=== PATIENT | female | born 1995 | race Caucasian/White ===

== ENCOUNTER 2019-10-15 19:48 | Inpatient (IN) | payer OTHER, SELFPAY ==
--- NOTE | ~2019-10-15 | CT_ITS ---
EXAMINATION: CT BRAIN W/O DATE: 10/15/2019 21:02 INDICATION: Headache TECHNIQUE: Computed tomography (CT) of the head was performed without intravenous contrast. The dose- length product was 605.33 mGy-cm. The mA was adjusted according to patient size. Iterative reconstruc tion technique was employed. COMPARISON: No prior studies for comparison. FINDINGS: Normal brain parenchymal volume for age. Normal burton-white differentiation. No acute intrac ranial hemorrhage, infarction, mass or mass effect. No ventriculomegaly or midline shift. Midline sagittal images demonstrate a normal corpus callosum, c raniovertebral junction and sella turcica. Basilar cisterns are patent. Paranasal sinuses and mastoids are pneumatized. No depressed skull fractures. IMPRESSION: 1. No acute intracranial abnormality. Reviewed, dictated and finalized at location A. STICS/SHIPPER
--- NOTE | ~2019-10-15 | MR_ITS ---
EXAMINATION: MR brain/brain stem wo/w con DATE: 10/16/2019 12:41 INDICATION: Headache and blurred vision. Increased intracranial pressure. TECHNIQUE: Magnetic resonance imaging (MRI) of the brain and brainstem was performed without and with 20 mL MultiHance intravenous contrast. Sequences included sagittal and axial T1-weighted FSE, axial diffusion-weighted FS EPI, axial T2*-weighted GRE, axial T2-weighted FLAIR Propeller, and axial T2-we ighted Propeller. Postcontrast sequences included axial and coronal T1-weighted FSE. Apparent diffusi on coefficient (ADC) maps were created. COMPARISON: Head CT 10/15/2019 FINDINGS: There is no intracranial hemorrhage, acute infarction, or abnormal intracranial mass lesion . The ventricles are normal in size. The paranasal sinuses are clear. The orbits are normal. The mast oid air cells are normal. IMPRESSION: 1. Normal brain. Reviewed, dictated and finalized at location A. SCIENCE TEACHER IMPRESSION: 1. Normal brain.
--- NOTE | ~2019-10-15 | XR_ITS ---
EXAMINATION: XR lumbar puncture diagnostic DATE: 10/17/2019 13:44 INDICATION: Headache. TECHNIQUE: The procedure including the risks, benefits, and alternatives was discussed with the patie nt. Risks discussed included spinal headache, cerebrospinal fluid leak, bleeding, and infection. The patient understood the risks and agreed to proceed. A timeout was performed to verify the patient' s name, date of , and procedure to be performed. The skin overlying the L2-L3 level was prepped and draped in usual sterile fashion. Subcutaneous 1% lidocaine was used for local anesthesia. A 20 gauge spinal needle was advanced under fluoroscopic guidance. The needle was removed and the entry s ite was cleaned and dressed. There were no immediate complications. Fluoroscopy exposure time was 0. 1 minutes. The total number of images was 1. The needle was then withdrawn into the epidural space. 1 0 mL blood was then withdrawn from the patient's arm and injected into the epidural space. FINDINGS: Real-time fluoroscopy demonstrates the needle at the L2-L3 level. The opening pressure was 12 cm water (Normal range is variably defined as 6-20 cm water and up to 25 cm water in obese patient s. Pressure >25 cm water is one of the modified Dandy criteria for idiopathic intracranial hypertensi on). 13 mL of clear, colorless fluid was collected in 4 tubes. IMPRESSION: 1. Successful fluoro-guided lumbar puncture with normal pressure. 2. Epidural blood patch performed. Reviewed, dictated and finalized at location A. K STITCHER
--- NOTE | ~2019-10-15 | MR_ITS ---
EXAMINATION: MR venography brain DATE: 10/16/2019 15:02 INDICATION: Increased intracranial pressure. Headache. TECHNIQUE: Magnetic resonance venography (MRV) of the brain was performed without intravenous contras t with T1-weighted SPGR by the 2D [id number] technique. Maximum intensity projection 3D-reconstru ctions were obtained. COMPARISON: Brain MRI 10/16/2019, head CT 10/15/2019 FINDINGS: The superior sagittal sinus, straight sinus, transverse sinuses, and oblique sinuses are normal. The internal cerebral veins and vein of Mario are normal. IMPRESSION: 1. Normal MRV. Reviewed, dictated and finalized at location A. HT LINE SERVICE ATTENDANT IMPRESSION: 1. Normal MRV.
[2019-10-15 19:52] VITALS: BP 157/94; PULSE 83; RESP 22; TEMP 36.9; O2SAT 100
[2019-10-15 20:35] LABS: Basophils Percent Auto 0.2 % (0.2-1.2); Eosinophils Absolute Auto 0.2 K/mm3 (0-0.3); Eosinophils Percent Auto 1.7 % (0-4.4); Hematocrit 41.1 % (37.0-47.0); Hemoglobin 13.8 g/dL (12.0-15.0); Immature Granulocyte Absolute 0.04 K/mm3 (0.00-0.031); Immature Granulocyte Percent A 0.3 % (0-0.5); Lymphocytes Percent Auto 25.3 % (18.3-44.2); Mean Corpuscular HGB Conc 33.6 g/dl (32-36); Mean Corpuscular Hemoglobin 30.5 pg (26-34); Mean Corpuscular Volume 90.7 fl (80-100); Mean Platelet Volume 10.1 fl (7.4-10.4); Monocytes Percent Auto 7.7 % (2.6-8.5); Neutrophils Absolute Auto 8.7 K/mm3 (1.3-6.7); Neutrophils Percent Auto 64.8 % (45.5-73.1); Platelet Count Result 236 k/mm3 (150-375); Red Blood Count 4.53 M/mm3 (4.2-5.4); Red Cell Distribution Width 12.3 % (11.5-14.5); White Blood Count 13.4 K/mm3 (4.5-10.0)
[2019-10-15 20:46] LABS: Blood Urea Nitrogen 11 mg/dL (7-17); Calcium 9.4 mg/dL (8.4-10.2); Carbon Dioxide 26 mmol/L (22-30); Chloride 103 mmol/L (98-107); Estimated CRCL calculation 128 ml/min; Estimated Glomerular Filt Rate > 60; Glucose 103 mg/dL (65-105); Sodium 140 mmol/L (137-145)
[2019-10-15 22:10] LABS: Add Urine Microscopic? YES; Amorphous Sediment Urine Few; Appearance Urine Clear (Clear); Bacteria Urine Trace /hpf; Bilirubin Urine Negative (Negative); Blood Urine Negative (Negative); Color Urine Yellow (Yellow); Glucose Urine UA Negative (Negative); Ketones Urine Negative (Negative); Leukocyte Esterase Ur Trace LEU/UL (Negative); Mucus Urine Rare /lpf; Nitrate Urine Negative (Negative); Protein Urine Negative (Negative); RBC Urine 0-2 /hpf (0-2); Specific Grav Ur 1.028 (1.001-1.035); Squamous Epithelial Cell Urine Moderate /hpf (Few); WBC Urine 0-3 /hpf
--- NOTE | 2019-10-15 22:47 | ED.GENADULT ---
HPI - General Adult General Chief complaint: Eye Problems <Suyapa Seo PA-C - Last Filed: 10/16/19 02:13> Stated complaint: referred from eye dr for ct <Suyapa Seo PA-C - Last Filed: 10/16/19 02:13> Time Seen by Provider: 10/15/19 22:42 <Suyapa Seo PA-C - Last Filed: 10/16/19 02:13> Source: patient and family <Suyapa Seo PA-C - Last Filed: 10/16/19 02:13> Mode of arrival: ambulatory <Suyapa Seo PA-C - Last Filed: 10/16/19 02:13> Limitations: no limitations <Suyapa Seo PA-C - Last Filed: 10/16/19 02:13> History of Present Illness HPI narrative: Pt was referred here for CT after being evaluated by clock and watch hands painter and found to have papiledema. She was seeing them for blurred vision and headache lasting 2 weeks. [facility] for possible pseudotumor ceribri/IIH. <Suyapa Seo PA-C - Last Filed: 10/16/19 02:13> Onset (ago): week(s) <Suyapa Seo PA-C - Last Filed: 10/16/19 02:13> Location: head and eyes <Suyapa Seo PA-C - Last Filed: 10/16/19 02:13> Quality: aching <Suyapa Seo PA-C - Last Filed: 10/16/19 02:13> Pain Consistency: constant <Suyapa Seo PA-C - Last Filed: 10/16/19 02:13> Relieving factors: none <ANGELICA Art Last Filed: 10/16/19 02:13> Exacerbating factors: none <ANGELICA Art Last Filed: 10/16/19 02:13> Associated symptoms: other (blurred vision) <Suyapa Seo PA-C - Last Filed: 10/16/19 02:13> Treatments prior to arrival: none <Suyapa Seo PA-C - Last Filed: 10/16/19 02:13> Related Data Home medications: Home Medications Medication Instructions Recorded Confirmed No Home Medications 10/16/19 10/16/19 <Suyapa Seo PA-C - Last Filed: 10/16/19 02:13> Allergies/adverse reactions: Allergies Allergy/AdvReac Type Severity Reaction Status Date / Time Sulfa (Sulfonamide Allergy Unknown Verified 10/15/19 23:17 Antibiotics) <Suyapa Seo PA-C - Last Filed: 10/16/19 02:13> Review of Systems Review of Systems: All systems reviewed & are unremarkable except as noted in HPI and below <Suyapa Seo PA-C - Last Filed: 10/16/19 02:13> [facility] Family History Family History: Family History (Updated 10/16/19 @ 04:06 by Jasbir Sanon RN) Mother Cancer Cerebrovascular accident Diabetes mellitus Father No problems noted. 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 Gender identity (if verbalized by the patient): Female Spiritual care concerns: No Agree to blood products: Yes <Suyapa Seo PA-C - Last Filed: 10/16/19 02:13> Exam Const: General: no acute distress and alert <ANGELICA Art Last Filed: 10/16/19 02:13> Orientation/consciousness: patient oriented x3 <ANGELICA Art Last Filed: 10/16/19 02:13> HENMT: Ears: TM's normal bilaterally <Suyapa Seo PA-C - Last Filed: 10/16/19 02:13> Eyes: Conjunctivae: conjunctivae normal <ANGELICA Art Last Filed: 10/16/19 02:13> Pupils: Equal, round and reactive pupils present (remain dilated from prior exam) <ANGELICA Art Last Filed: 10/16/19 02:13> EOM: EOMs intact bilaterally <ANGELICA Art Last Filed: 10/16/19 02:13> Direct Ophthalmoscopy: no photophobia <ANGELICA Art Last Filed: 10/16/19 02:13> Neck: Neck: no lymphadenopathy <ANGELICA Art Last Filed: 10/16/19 02:13> Resp: Effort & Inspection: normal respiratory effort <Suyapa Holliday
[2019-10-15 23:03] VITALS: BP 148/97; PULSE 66; RESP 20; TEMP 36.6; O2SAT 98
--- NOTE | 2019-10-15 23:23 | PC.NURSE ---
Patient in room with her SO discussing treatment options at this time.
--- NOTE | 2019-10-16 00:11 | PC.NURSE ---
EDP in room at this time performing LP on patient. Consent signed. This RN at bedside as well.
[2019-10-16 01:37] LABS: Glucose CSF 60 mg/dL (40-70); Total Protein CSF 27 mg/dL (12-60)
[2019-10-16] MEDS: ACETAZOLAMIDE 250 MG TABLET PO ×3 (02:49→15:07)
[2019-10-16 02:55] VITALS: BP 127/84; PULSE 75; RESP 19; O2SAT 99
[2019-10-16 02:56] LABS: Appearance CSF Clear (Clear); CSF source CSF; Color CSF Colorless (Colorless)
[2019-10-16 02:57] LABS: Nucleated Cell CSF 8 /uL (0-5); Red Blood Cell CSF 0 (0-2)
[2019-10-16 02:58] LABS: Monocytes CSF 14 % (15-45)
[2019-10-16 03:00] LABS: Lymphocytes CSF 86 % (40-80)
[2019-10-16 03:55] VITALS: BMI 39.0
--- NOTE | 2019-10-16 04:03 | ADMGEN ---
This patient, Marline Mendez, was admitted to [facility] Surg Room 327-01. Patient/family oriented to hospital policies and general routines including ID bracelet, bed and alarms, visiting hours, pain management, procedures, bathroom and other care routines, personal items, smoking policy, room service/diet, and visiting hours. Valuables list has been completed. Information on how to activate the Rapid Response Team has been discussed. Patient/Family are encouraged to report perceived risks to care and to ask questions if they do not understand what they are told or what they should do.
[2019-10-16] MEDS: ACETAMINOPHEN 325 MG TABLET 650 MG PO ×3 (04:30→23:20)
[2019-10-16 04:38] VITALS: BP 142/79; PULSE 75; RESP 20; TEMP 36.5; O2SAT 100
[2019-10-16 06:00] VITALS: BP 136/69; PULSE 82; RESP 20; TEMP 36.6; O2SAT 100
[2019-10-16 08:00] VITALS: PULSE 60; RESP 20; O2SAT 100
[2019-10-16 14:00] VITALS: BP 136/74; PULSE 65; RESP 18; TEMP 36.4; O2SAT 98
[2019-10-16 16:48] LABS: T4 Thyroxine 6.04 ug/dL (5.53-11.0)
[2019-10-16 16:52] LABS: Vitamin D 25 Hydroxy 27.4 ng/mL
--- NOTE | 2019-10-16 17:38 | PM.IMHP ---
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 pt mentions vision problems, headaches and weight gain of 100 lbs in 6 months. pt was adviced to go to ED, pt had ct head stat and lp. pt had mri today. pts bp slightly high today ongoing headaches. ct head and mri head were negative, brain venogram also negative, pt seen by neurology started on acetazolamide for raised intracranial pressure. pt to be monitored overnite, neurochecks and bp monitoring. pt does not mention any new medications or cocp, pt does not mention any recent pregnancies, no history of brain tumors or ms in the family Review of Systems Review of Systems: All systems reviewed & are unremarkable except as noted in HPI and below Neurologic: Denies confusion, Denies vertigo, Denies dizziness, Reports headache(s), Denies focal weakness and Denies weakness PMFSH Family History Family History Mother Cancer Cerebrovascular accident Diabetes mellitus Father No problems noted. 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 Gender identity (if verbalized by the patient): Female Spiritual care concerns: No Agree to blood products: Yes Meds Home Medications and Allergies Home Medications Medication Instructions Recorded Confirmed Type acetazolamide 250 mg PO BID 14 Days #28 tablet 10/18/19 Rx Allergies Allergy/AdvReac Type Severity Reaction Status Date / Time Sulfa (Sulfonamide Allergy Unknown Verified 10/15/19 23:17 Antibiotics) Vital Signs Vital Signs - 24 hr 10/15/19 19:52 10/15/19 23:03 10/16/19 02:55 Temperature 36.9 C 36.6 C Pulse Rate 83 66 75 Respiratory Rate 22 H 20 19 Blood Pressure 157/94 H 148/97 H 127/84 Pulse Oximetry 100 98 99 10/16/19 04:38 10/16/19 06:00 10/16/19 08:00 Temperature 36.5 C 36.6 C Pulse Rate 75 82 60 Respiratory Rate 20 20 20 Blood Pressure 142/79 H 136/69 Pulse Oximetry 100 100 100 10/16/19 14:00 Temperature 36.4 C L Pulse Rate 65 Respiratory Rate 18 Blood Pressure 136/74 Pulse Oximetry 98 Exam Const: General: well developed Nutritional Appearance: well nourished HENMT: Head: normocephalic Eyes: General: appearance normal, both eyes and all related structures Neck: Neck: supple Chest: Chest palpation & inspection: normal inspection of the chest Resp: Effort & Inspection: normal respiratory effort Auscultation: clear to auscultation bilaterally Cardio: Jugular venous distension: no JVD Rhythm: regular rhythm Heart sounds: S1 normal heart sound present and S2 normal heart sound present GI: Inspection: normal to inspection GI Palp: No abdominal tenderness, Yes Soft to palpation and No Tenderness to palpation present (GI) Auscultation: normal bowel sounds Skin: General skin exam: normal color and dry skin Neuro: Cranial nerves: Yes CN's II-XII intact bilaterally and Yes Equal, round and reactive pupils present Cognition (Neuro): normal cognition Speech: normal speech Motor exam (neuro): 5/5 motor strength present throughout Extrem: General: normal to inspection Psych: Appearance: grossly normal Mental Status: mental status grossly normal H&P: Results Labs Labs: Short CBC 10/15/19 Range/Units 20:28 WBC 13.4 H (4.5-10.0) K/mm3 Hgb 13.8 (12.0-15.0) g/dL Hct 41.1 (37.0-47.0) % Plt Count 236 (150-375) k/mm3 [facility] 10/15/19 20:28 Sodium 140 Potassium 4.0 Chloride 103 Carbon Dioxide 26 BUN 11 Creatinine 0.70 Glucose 103 Calci
--- NOTE | 2019-10-16 18:50 | CONS_ITS ---
DATE OF CONSULTATION: 10/16/2019 HISTORY OF PRESENT ILLNESS: 24 years old right-handed female has been admitted to [facility] through the emergency room with the chief complaint of difficulties in vision in addition to the history of being seen by the circuit judge, lost and found clerk, and documentation of papilledema with complaint of blurred vision and headache of 2 weeks duration. 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 PHYSICAL EXAMINATION: GENERAL: Revealed her to be awake, alert, cooperative, in no obvious acute distress. HEENT: Head normocephalic with no cranial bruit. Ear, nose, throat examination normal. Pupils round, regular. Fajardo of vision full. Extraocular movements full. Face symmetrical. Tongue midline. Motor examination revealed her to have no drift of one side or the other side. Reflexes symmetrical. Plantars downgoing. There is no evidence of gross sensory or cerebellar deficit. Fundal examination abnormal. The patient has been admitted here to have the MRI, MRV, and with further treatment accordingly. Evaluation up until now revealed her to be afebrile, normotensive. Blood pressure 157/94, but come down to 136/69. LABORATORY DATA: WBC 13.4, hemoglobin 13.8, platelet count 236. Sodium 140, potassium 4.0, chloride 103, CO2 26, BUN 11, creatinine 0.7, and blood sugar 103. IMAGING: The initial head CT scan was done in the emergency room, which documented no acute intracranial abnormality. Brain MRI documented a normal brain, no mass. Ventricles normal in size. Orbits normal. Mastoid air cells normal. Spinal tap was done in the emergency room. Total nucleated cells were 8, lymphocytes 86, monocytes 14, leuko 60, protein only 27. Culture pending. HSV PCR pending. The spinal tap opening pressure was 51, fluid looked crystal clear, closing pressure 19, and CSF were sent for all the studies. Pending studies include the MRV. I will discuss with the patient for the time being. Further recommendation accordingly. SMOOTH GOLDSMITH M.D. TANK CAR LOADER TANK CAR LOADER D I MT: [place]
[2019-10-16 22:00] VITALS: BP 129/60; PULSE 84; RESP 18; TEMP 36.6; O2SAT 97
[2019-10-16] MEDS: TRAMADOL HCL 50 MG TABLET PO (22:06)
[2019-10-17] MEDS: ONDANSETRON INJ 4 MG/2 ML VIAL IV PUSH ×2 (00:08→15:50)
[2019-10-17] MEDS: NALBUPHINE HCL 10 MG/ML AMPUL IM ×2 (00:13→10:48)
[2019-10-17 02:00] VITALS: BP 146/77; PULSE 60; RESP 18; TEMP 36.3; O2SAT 99
[2019-10-17 04:00] VITALS: BP 143/82; PULSE 69; RESP 18; TEMP 36.7; O2SAT 99
[2019-10-17 06:00] VITALS: BP 143/82; PULSE 69; RESP 18; TEMP 36.7; O2SAT 99
[2019-10-17 06:12] LABS: Hematocrit 43.5 % (37.0-47.0); Hemoglobin 14.4 g/dL (12.0-15.0); Mean Corpuscular HGB Conc 33.1 g/dl (32-36); Mean Corpuscular Hemoglobin 30.4 pg (26-34); Platelet Count Result 226 k/mm3 (150-375); Red Blood Count 4.73 M/mm3 (4.2-5.4); Red Cell Distribution Width 12.2 % (11.5-14.5); White Blood Count 10.8 K/mm3 (4.5-10.0)
[2019-10-17 06:39] LABS: Blood Urea Nitrogen 13 mg/dL (7-17); Calcium 9.2 mg/dL (8.4-10.2); Carbon Dioxide 21 mmol/L (22-30); Chloride 105 mmol/L (98-107); Estimated CRCL calculation 103 ml/min; Estimated Glomerular Filt Rate > 60; Glucose 94 mg/dL (65-105); Potassium 4.2 mmol/L (3.4-5.0); Sodium 137 mmol/L (137-145)
[2019-10-17] MEDS: ACETAZOLAMIDE 250 MG TABLET PO ×2 (11:36→18:04)
[2019-10-17 12:23] LABS: INR 0.9
[2019-10-17 12:24] LABS: Partial Thromboplastin Time 23.1 SECONDS (22.3-36.8)
--- NOTE | 2019-10-17 12:26 | WPDNEUROPN ---
Progress Note: A&P Additional Plan more severeheadache after spinal tap ,discusse and suggested to repeat tap document pressure and then blood patch Review of Systems Review of Systems: All systems reviewed & are unremarkable except as noted in HPI and below Exam Const: General: cooperative, alert, awake, acute distress and anxious Nutritional Appearance: obese Orientation/consciousness: patient oriented x3 Limitations: no limitations Eyes: General: appearance normal, both eyes and all related structures Alignment and Position: alignment normal Periorbital: periorbital findings normal Eyelids: eyelids normal Conjunctivae: conjunctivae normal Sclera: sclerae normal Cornea: corneas normal Pupils: Equal, round and reactive pupils present EOM: EOMs intact bilaterally Direct Ophthalmoscopy: normal light reflex Neck: Neck: full ROM Resp: Auscultation: clear to auscultation bilaterally Cardio: Rate: regular rate Rhythm: regular rhythm Skin: General skin exam: no rashes or lesions noted Neuro: General: patient oriented x3, moves all extremities, no meningeal signs, no focal motor deficits and CN's II-XI intact bilaterally Deep tendon reflexes (DTR's): Right triceps reflex intensity grade: 1+, Left triceps reflex intensity grade: 1+, Rt Biceps (C5, C6): 1+, Left biceps reflex intensity grade: 1+, Right brachioradialis reflex intensity grade: 1+, Left brachioradialis reflex intensity grade: 1+, Right patellar reflex intensity grade: 1+, Left patellar reflex intensity grade: 1+, Right ankle reflex intensity grade: 1+ and Left ankle reflex intensity grade: 1+ Plantar Reflex Responses: downgoing: bilateral Coordination: [id number] test normal Psych: Appearance: grossly normal Objective Data Vital Signs Vital Signs: Vital Signs - 24 hr 10/16/19 14:00 10/16/19 22:00 10/17/19 02:00 Temperature 36.4 C L 36.6 C 36.3 C L Pulse Rate 65 84 60 Respiratory Rate 18 18 18 Blood Pressure 136/74 129/60 146/77 H Pulse Oximetry 98 97 99 10/17/19 04:00 10/17/19 06:00 Temperature 36.7 C 36.7 C Pulse Rate 69 69 Respiratory Rate 18 18 Blood Pressure 143/82 H 143/82 H Pulse Oximetry 99 99 Intake/Output Intake/Output: Intake & Output 01/29/20 10/15/19 10/16/19 10/17/19 23:59 23:59 23:59 23:59 Intake Total 400 350 Output Total 400 Balance 0 350 Meds/Results Medications: Active Medications Generic Name Dose Route Start Last Admin Trade Name Magdi PRN Reason Stop Dose Admin Acetaminophen 650 mg 10/16/19 02:01 10/16/19 23:20 Tylenol Tablet PO 650 mg Q4H PRN Administration Mild Pain (1-3) or Fever Acetazolamide 250 mg 10/16/19 13:22 10/17/19 11:36 Diamox Tab PO 250 mg BID ANGÉLICA Administration Nalbuphine HCl 10 mg 10/16/19 23:51 10/17/19 10:48 Nubain IM 10 mg Q4H PRN Administration Pain Rated 7-10 Ondansetron HCl 4 mg 10/16/19 23:52 10/17/19 00:08 Zofran Inj IV PUSH 4 mg Q4H PRN Administration Nausea And Vomiting Tramadol HCl 50 mg 10/16/19 21:55 10/16/19 22:06 Ultram PO 50 mg Q4H PRN Administration Pain Rated 4-6 Radiology Results: ITS Impressions Head CT 10/15/19 21:04 IMPRESSION: 1. No acute intracranial abnormality. Brain MRI 10/16/19 12:59 IMPRESSION: 1. Normal brain. Head/Brain Mag Res Venography 10/16/19 15:45 IMPRESSION: 1. Normal MRV. Labs Labs: Laboratory Results - last 24 hr 10/16/19 10/16/19 10/16/19 15:49 15:49 15:49 WBC RBC Hgb Hct MCV MCH MCHC RDW Plt Count MPV PT INR APTT Sodium Potassium Chloride Carbon Dioxide BUN Creatinine Estim Creat Clear Calc Estimated GFR Glucose Calcium Vitamin B12 367.0 Vitamin D 25-Hydroxy 27.4 Folate 7.0 Thyroxine (T4) 6.04 10/17/19 10/17/19 10/17/19 06:00 06:00 11:46 WBC 10.8 H RBC 4.73 Hgb 14.4 Hct 43.5 MCV 92.0 MCH
[2019-10-17 12:30] VITALS: BP 133/76; PULSE 66; RESP 17; O2SAT 100
[2019-10-17 13:05] VITALS: BP 132/77; PULSE 65; RESP 16; O2SAT 100
[2019-10-17 14:00] VITALS: BP 137/82; PULSE 65; RESP 20; TEMP 36.4; O2SAT 100
--- NOTE | 2019-10-17 17:41 | PM.IMPN ---
Progress Note: A&P Assessment and Plan (1) Increased intracranial pressure: Code(s): G93.2 - Benign intracranial hypertension Status: Acute Assessment and Plan: Ct head and mri head were negative, brain venogram also negative, LP results noted. pt seen by neurology started on acetazolamide for raised intracranial pressure. pt to be monitored overnite, neurochecks and bp monitoring. pt does not mention any new medications or cocp, pt does not mention any recent pregnancies, no history of brain tumors or ms in the family (2) Headache: Qualifiers: Headache chronicity pattern: unspecified pattern Headache type: unspecified Intractability: intractable Qualified Code(s): R51 - Headache Code(s): R51 - Headache Status: Acute Assessment and Plan: Pain control continue to monitor,awaiting improvement on acetazolamide. Pt having ongoing headaches, pt will go for a rpt LP wit blood patch soon. 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 pt mentions vision problems, headaches and weight gain of 100 lbs in 6 months. pt was adviced to go to ed rom, pt had ct head stat and lp. pt had mri today. pts bp slightly high today ongoing headaches. ct head and mri head were negative, brain venogram also negative, pt seen by neurology strated on acetazolamide for raised intracranial pressure. pt to be monitored overnite, neurochecks and bp monitoring. pt does not mention any new medications or cocp, pt does not mention any recent pregnancies, no history of brain tumors or ms in the family. Pt having ongoing headaches, pt will go for a rpt LP wit blood patch soon. Review of Systems Review of Systems: All systems reviewed & are unremarkable except as noted in HPI and below Constitutional: Constitutional: Reports headache(s) and Denies weakness ENT: Denies vertigo, Denies dizziness and Reports headache(s) Neurologic: Denies confusion, Denies vertigo, Denies dizziness, Reports headache(s), Denies focal weakness and Denies weakness Psychiatric: Psychiatric: Denies confusion Exam Const: General: tired appearing and other (with a headache ) Nutritional Appearance: well nourished Orientation/consciousness: No confusion HENMT: Head: normocephalic Eyes: General: appearance normal, both eyes and all related structures Pupils: Equal, round and reactive pupils present Neck: Neck: supple Chest: Chest palpation & inspection: normal inspection of the chest Resp: Effort & Inspection: normal respiratory effort Auscultation: clear to auscultation bilaterally Cardio: Jugular venous distension: no JVD Rhythm: regular rhythm Heart sounds: S1 normal heart sound present and S2 normal heart sound present GI: Inspection: normal to inspection Auscultation: normal bowel sounds Skin: General skin exam: normal color and dry skin Neuro: General: No confusion Cranial nerves: Yes CN's II-XII intact bilaterally and Yes Equal, round and reactive pupils present Cognition (Neuro): normal cognition Speech: normal speech Motor exam (neuro): 5/5 motor strength present throughout Extrem: General: normal to inspection Psych: Appearance: grossly normal Mental Status: mental status grossly normal Objective Data Vital Signs Vital Signs: Vital Signs - 24 hr 10/16/19 22:00 10/17/19 02:00 10/17/19 04:00 Temperature 36.6 C 36.3 C L 36.7 C Pulse Rate 84 60 69 Respiratory Rate 18 18 18 Blood Pressure 129/60 146/77 H 143/82 H Pulse Oximetry 97 99 99 10/17/19 06:00 10/17/19 12:30 10/17/19 13:05 Temperature 36.7 C Pulse Rate 69 66 65 Respiratory Rate 18 17 16 Blood
[2019-10-18] VITALS: BP 150/75; PULSE 101; RESP 18; TEMP 37.2; O2SAT 95
[2019-10-18] MEDS: NALBUPHINE HCL 10 MG/ML AMPUL IM (04:25)
[2019-10-18 05:58] VITALS: BP 118/63; PULSE 95; RESP 18; TEMP 36.8; O2SAT 97
[2019-10-18 06:01] VITALS: BP 150/75; PULSE 101; RESP 18; TEMP 37.1; O2SAT 95
[2019-10-18 06:16] LABS: Hematocrit 43.4 % (37.0-47.0); Hemoglobin 14.5 g/dL (12.0-15.0); Mean Corpuscular HGB Conc 33.4 g/dl (32-36); Mean Corpuscular Hemoglobin 30.7 pg (26-34); Mean Corpuscular Volume 91.8 fl (80-100); Mean Platelet Volume 10.5 fl (7.4-10.4); Platelet Count Result 264 k/mm3 (150-375); Red Blood Count 4.73 M/mm3 (4.2-5.4); Red Cell Distribution Width 12.2 % (11.5-14.5); White Blood Count 12.9 K/mm3 (4.5-10.0)
[2019-10-18 06:42] LABS: Blood Urea Nitrogen 13 mg/dL (7-17); Calcium 9.3 mg/dL (8.4-10.2); Carbon Dioxide 17 mmol/L (22-30); Chloride 109 mmol/L (98-107); Estimated CRCL calculation 103 ml/min; Estimated Glomerular Filt Rate > 60; Glucose 104 mg/dL (65-105); Potassium 3.9 mmol/L (3.4-5.0); Sodium 138 mmol/L (137-145)
[2019-10-18] MEDS: ACETAZOLAMIDE 250 MG TABLET PO (08:25)
--- NOTE | 2019-10-18 13:00 | PM.DS ---
DS: Diagnosis Admitting Diagnosis Admitting Diagnosis: Benign intracranial hypertension Discharge Diagnosis (1) Increased intracranial pressure: Code(s): G93.2 - Benign intracranial hypertension Status: Acute Assessment and Plan: Ct head and mri head were negative, brain venogram also negative, LP results noted. pt seen by neurology started on acetazolamide for raised intracranial pressure. pt to be monitored overnite, neurochecks and bp monitoring. pt does not mention any new medications or cocp, pt does not mention any recent pregnancies, no history of brain tumors or ms in the family. (2) Headache: Qualifiers: Headache chronicity pattern: unspecified pattern Headache type: unspecified Intractability: intractable Qualified Code(s): R51 - Headache Code(s): R51 - Headache Status: Resolved Assessment and Plan: Pain control continue to monitor,awaiting improvement on acetazolamide. Pt had rpt LP with blood patch soon. feels much better today, ready for dischrage. Rpt LP opening pressure is lower than first LP. (3) Blurred vision: Code(s): H53.8 - Other visual disturbances Status: Acute Assessment and Plan: Pt seen by opthamology will follow again on discharge DS: Summary Time Spent with Patient Time attestation: Total time spent providing and/or coordinating discharge services:38 minutes on day of dischrage Exam Const: General: tired appearing Nutritional Appearance: well nourished Other: no headache HENMT: Head: normocephalic Eyes: General: appearance normal, both eyes and all related structures Pupils: Equal, round and reactive pupils present Neck: Neck: supple Chest: Chest palpation & inspection: normal inspection of the chest Resp: Effort & Inspection: normal respiratory effort Auscultation: clear to auscultation bilaterally Cardio: Jugular venous distension: no JVD Rhythm: regular rhythm Heart sounds: S1 normal heart sound present and S2 normal heart sound present GI: Inspection: normal to inspection Auscultation: normal bowel sounds Skin: General skin exam: normal color and dry skin Neuro: Cranial nerves: Yes CN's II-XII intact bilaterally and Yes Equal, round and reactive pupils present Cognition (Neuro): normal cognition Speech: normal speech Motor exam (neuro): 5/5 motor strength present throughout Extrem: General: normal to inspection Psych: Appearance: grossly normal Mental Status: mental status grossly normal DS: Data Data Completed and Pending Labs on day of discharge: Labs from last 24 hours 10/18/19 10/18/19 05:52 05:52 WBC 12.9 H RBC 4.73 Hgb 14.5 Hct 43.4 MCV 91.8 MCH 30.7 MCHC 33.4 RDW 12.2 Plt Count 264 MPV 10.5 H Sodium 138 Potassium 3.9 Chloride 109 H Carbon Dioxide 17 L BUN 13 Creatinine 0.90 Estim Creat Clear Calc 103 Estimated GFR > 60 Glucose 104 Calcium 9.3 Preliminary micro results at discharge 10/16/19 01:16 CSF Culture - Preliminary Cerebral Spinal Fluid Discharge Plan Discharge Attending physician on discharge: Rina Proctor Consulting providers: Dl Sexton ; Suyapa Seo Discharging Clinician: Rina Proctor Anticipated Discharge Date/Time: 10/18/19 12:55 Patient Disposition: Home, Self-Care Activity: as tolerated Diet: low fat Discharge Instructions: NEEDS TO SEE DR SEXTON IN 2 WEEKS IN HIS OFFICE. Pt adviced to loose weight Patient Instructions: Antibiotic Form Stand Alone Forms: General Discharge Information Follow-up/Referrals: Dl Sexton MD [Physician] - Discharge Medications: New acetazolamide 250 mg Tablet 250 mg PO BID 14 Days Qty: 28 RF: 0 Date of admission: 10/17/19 20:01 Primary Care Provider: UNKNOWN,DOCTOR Admitting Provider: Mehdi Correa Attending physician on admission: Mehdi Correa Condition: Stable
[2019-10-19 14:36] LABS: Herpes Simplex Type 1 DNA PCR Not Detected (Not Detected); Herpes Simplex Type 2 DNA PCR Not Detected (Not Detected)
== END 2019-10-18 13:59 | disposition home or self-care (01) | DRG 103 ==
LOC: ANHED 10-16 02:12 → ANH3MEDSUR 10-16 02:18
PROVIDERS: Psychiatry & Neurology Neurology; Admitting Provider Family Medicine; Emergency Provider Emergency Medicine; Visit Provider Family Medicine
DX: G93.2 Benign intracranial hypertension (principal); R51 Headache; H53.8 Other visual disturbances
CPT/HCPCS: 36415; 62270; 62328; 70450; 70544; 70553; 80048; 81001; 81025; 82306; 82607; 82746; 82945; 84157; 84436; 85025; 85027; 85610; 85730; 86038; 87070; 87529; 88108; 89051; 96374; 99285; A9270; A9577; J2300; J2405; J3010

== ENCOUNTER 2019-11-06 19:07 | Emergency (ER) | payer OTHER, SELFPAY ==
[2019-11-06 19:16] VITALS: BP 133/81; PULSE 82; RESP 18; TEMP 36.9; O2SAT 100
--- NOTE | 2019-11-06 19:28 | ED.EAR ---
HPI - Ear Problem General Chief complaint: Ear Stated complaint: r/ear ringing Time Seen by Provider: 11/06/19 19:20 Source: patient Mode of arrival: ambulatory Limitations: no limitations History of Present Illness HPI Narrative: Marline Mendez is a 24 yo female with a recent history pseudotumor cerebri that was hospitalized at [place] and discharged on 10/17, who is here with 3 days of ringing of ears. concerned it is related to this. No fever, N/V, headache, loss of balance, dizziness Related Data Allergies Allergy/AdvReac Type Severity Reaction Status Date / Time Sulfa (Sulfonamide Allergy Unknown Verified 11/06/19 19:21 Antibiotics) Review of Systems Review of Systems: Narrative: CONSTITUTIONAL: Denies fever, chills, sweats. EYES: Denies visual changes, redness, discharge. ENT: Denies rhinorrhea, congestion, sore throat, otalgia. Ringing in R ears CARDIOVASCULAR: Denies chest pain, palpitations, edema. RESPIRATORY: Denies dyspnea, wheezing, cough GASTROINTESTINAL: Denies abdominal pain, nausea, vomiting, diarrhea. GENITOURINARY: Denies dysuria, hematuria, abnormal discharge SKIN: Denies rash or itching. NEUROLOGIC: Denies numbness, or focal weakness. PSYCHIATRIC: Denies anxiety or depression. [facility] Family History Family History Mother Cancer Cerebrovascular accident Diabetes mellitus Father No problems noted. 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 There is no relevant family history pertinent to the presenting complaint. Exam Narrative: Exam Narrative: GENERAL: This is a well-nourished, well-developed patient, in mild distress. Very anxious HEAD: normocephalic, atraumatic. EYES: PERRL. Sclera clear/white. Vision is grossly intact. EARS: External ears normal, auditory canals clear and without drainage, TMs normal without perforation. Hearing grossly intact. NOSE: External nose normal with no obvious nasal discharge, nares without redness, no rhinorrhea. THROAT: Mucous membranes moist, posterior pharynx clear. NECK: Neck supple, non-tender without lymphadenopathy, masses or thyromegaly. CARDIOVASCULAR: Regular rate and rhythm without murmurs, gallops, or rubs. RESPIRATORY: Clear to auscultation. Breath sounds equal bilaterally. No wheezes, rales, or rhonchi. GASTROINTESTINAL: Abdomen soft, non-tender, SKIN: warm, intact with no suspicious lesions or rash, good texture and turgor. NEURO: awake, alert, and oriented to person, place and time. There were no obvious focal neurologic abnormalities. Steady gait neuroexam - grossly negative cranial nerves, good rapid fingr movement, normal extraocular eye movement, strength 5/5 all extremities- denies any headache EXTREMITIES: Normal range of motion. No edema. BACK: Nontender without deformity or crepitance. No flank tenderness. Course Course Emergency Course: discussed tx options - cortisporin given- to followup with neurology if continues Vital Signs Vital signs: Vital Signs Temperature 98.5 F 11/06/19 19:16 Pulse Rate 82 11/06/19 19:16 Respiratory Rate 18 11/06/19 19:16 Blood Pressure 133/81 11/06/19 19:16 Pulse Oximetry 100 11/06/19 19:16 Temperature 98.5 F 11/06/19 19:16 Pulse Rate 82 11/06/19 19:16 Respiratory Rate 18 11/06/19 19:16 Blood Pressure 133/81 11/06/19 19:16 Pulse Oximetry 100 11/06/19 19:16 Medical Decision Making [facility] Narrative Medical decision making narrative: Differential Diagnosis Different
== END 2019-11-06 19:45 | disposition home or self-care (01) ==
PROVIDERS: Emergency Provider Nurse Practitioner
DX: H93.11 Tinnitus, right ear (principal)
CPT/HCPCS: 99213; G0463